=== PATIENT | female | born 1970 | race Caucasian/White ===

== ENCOUNTER → 2017-09-17 | Outpatient (CLI) | payer BC ==
[~2017-09-17] MED LIST: ADJUSTABLE COMM1 MIS; CHOL5000 PO; DICL75TA PO; GABA300C5 PO; HYDR-3580 PO; HYDR12.57 PO; KETO10 PO; MEDICAL MARIJUANA PO; PHEN37.52 PO; TRAM50TA PO; WALKER WHEELS/F1 MIS; XARE10TA PO
== END ==
LOC: CPRE 09:59
PROVIDERS: ATTEND Orthopaedic Surgery Orthopaedic Surgery of the Spine
DX: Z01.810 Encounter for preprocedural cardiovascular examination (principal); Z01.812 Encounter for preprocedural laboratory examination; M16.11 Unilateral primary osteoarthritis, right hip

== ENCOUNTER 2017-09-21 06:42 | Inpatient (IN) | payer BC ==
[~2017-09-21] VITALS: Ht 162.6 cm; Wt 110.0 kg
[~2017-09-21 06:42] MED LIST changes: -ADJUSTABLE COMM1 MIS; -HYDR-3580 PO; -KETO10 PO; -PHEN37.52 PO; -WALKER WHEELS/F1 MIS; -XARE10TA PO
[2017-09-21] MEDS ORDERED: ceFAZolin 2 GM PREMIX 50 ML IV SCH (07:15)
[2017-09-21] MEDS ORDERED: VANCOMYCIN 1000 MG/NS 250 ML (for <70 kg) IV SCH ×2 (07:15)
[2017-09-21] MEDS ORDERED: SODIUM CHLORID 0.9% 500 ML IV PRN (07:15)
[2017-09-21] MEDS ORDERED: CHLORHEXIDINE GLUCONATE 2 % 1 PACK (2 CLOTHS) TOPICAL PRN (07:15)
[2017-09-21] MEDS ORDERED: METOPROLOL TARTRATE 25 MG TAB PO PRN (07:15)
[2017-09-21] MEDS ORDERED: POVIDONE IODINE 5% (ANTISEPSIS KIT) 4 APPLICATIONS EACH NARE PRN (07:15)
[2017-09-21] MEDS ORDERED: POVIDONE IODINE 7.5% SCRUB 118 ML BOTTLE TOPICAL SCH (07:15)
[2017-09-21] MEDS ORDERED: LACTATED RINGER'S 1000 ML IV PRN (07:15)
[2017-09-21] MEDS ORDERED: ACETAMINOPHEN 1000 MG/100 ML 100 ML IV ONE (07:46)
[2017-09-21 08:08] LABS: BACTERIA, URINE RARE /hpf; BLOOD, URINE MOD (NEG); GLUCOSE,URINE NEG (NEG); KETONE, URINE NEG (NEG); MUCUS URINE FEW /lpf (OCC); NITRITE,URINE NEG (NEG); SQUAMOUS EPITHELIAL CELL URINE <1 /hpf (0-5); TRANSITIONAL EPI CELLS, URINE <1 /hpf; URINE COLOR YELLOW (YELLW/STRAW)
[2017-09-21 08:10] LABS: COMMENT (UR) CATH-CULTURE IND; CULTURE IF INDICATED CATH CULTURE IND
[2017-09-21] MEDS ORDERED: APREPITANT 40 MG CAP ONE (08:29)
[2017-09-21] MEDS ORDERED: FAMOTIDINE 20 MG/2 ML VIAL ONE (08:30)
[2017-09-21] MEDS ORDERED: GENTAMICIN SULFATE 80 MG/2 ML VIAL ONE (08:30)
[2017-09-21] MEDS ORDERED: ONDANSETRON HCL 4 MG/2 ML VIAL ONE (08:33)
[2017-09-21] MEDS ORDERED: ceFAZolin INJ 1,000 MG VIAL ONE (09:16)
[2017-09-21] MEDS ORDERED: TRANEXAMIC ACID IV SCH ×2 (10:00→12:20)
[2017-09-21] MEDS ORDERED: SODIUM CHLORIDE 0.9% IV SCH ×2 (10:00→12:20)
[2017-09-21] MEDS ORDERED: EXPAREL PERI-ARTICULAR INJECTION (TOTAL VOL. 60 ML) P-ARTICULR SCH ×2 (10:00)
--- NOTE | 2017-09-21 11:20 | PD.OP ---
cc: Amandeep Jc MD Operative Report Date of Surgery: Sep 21, 2017 Preoperative Diagnosis: Osteoarthritis right hip Postoperative Diagnosis: Same Procedure: Right total hip replacement arthroplasty, direct anterior exposure Anesthesia: Gen. Surgeon: Amandeep Jc Syrup Mixer Assistant(s): ABELARDO Pham Operation and Findings: EBL: 500 cc INDICATION: This patient presents with significant hip pain related to severe osteoarthritis of the right hip. Despite extensive conservative care this patient continues to be painful and now presents for surgical treatment. NOTE: Patricia Pham PA-C was present for the entire surgical procedure as my first beater. In my medical opinion her skill and care was necessary for the proper management of this patient. COMPONENTS: COMPANY: [employer] CUP: [place], before, 100 series, gription surface LINER: Altrx 32, neutral STEM: [place], size 9, high offset, hydroxyapatite-coated HEAD: 32, ceramic, plus 1, /14 taper PROCEDURE: This patient was brought to the operating room and anesthetized in the supine position and positioned on the fracture table with both legs held extended. The right hip and leg was scrubbed with alcohol followed by Hibiclens followed by ChloraPrep and draped sterilely. Antibiotics were given within routine time window and a timeout was done. A 4 inch incision was made starting 2 cm distal and 2 cm lateral to the anterior superior iliac spine. The fascia minor was opened longitudinally. The interval between the fascia minor and the rectus was opened down to the capsule of the hip joint. Retractors were positioned allowing good visualization of the capsule. This was opened longitudinally and flaps were created. Stay sutures were utilized. Exposure was excellent. The neck was cut at the proper location using fluoroscopy as a guide. The head was removed. Deep retractors were positioned allowing good visualization of the acetabulum. Acetabulum was deepened down to the floor starting with a proper size reamer and reaming up to 53 mm. A trial was utilized. Fluoroscopy was used to check position and confirmed satisfactory alignment. The rim was reamed with a 54 mm reamer and the final cup was positioned in approximately 20 of anteversion and 40-45 of abduction. Position was satisfactory. A single hole eliminator was positioned followed by the final liner. The lifting hook was utilized. The leg was dropped to the floor, maximally externally rotated and brought across the midline. Retractors were positioned. A box osteotome was utilized followed by progressive broaching to the proper stem size. Trial reduction showed excellent alignment and fit. With 60 of external rotation the leg was dropped to the floor without evidence of anterior subluxation. The wound was irrigated. The final stem was inserted and was found to be very stable. The final reduction using the final head. Stability was as previously noted. Intraoperative x-rays were taken. The wound was irrigated copiously. Hemostasis was controlled. Local anesthesia was utilized. The capsule was repaired with #2 Tycron sutures. The fascia minor was repaired with running 0 PDS on a loop. Subcutaneous tissue was approximated with 2-0 Vicryl and skin with running intradermal 3-0 Vicryl followed by Steri-Strips. A sterile dressing was applied. The patient was awakened and taken to the recovery room in satisfactory condition. FINDINGS: There was severe osteoarthritis of the right hip. Findings of the femoral head were suspicious for avascular necrosis. The overall fit was excellent. No complication was appreciated. Amandeep Jc MD Sep 21, 2017 11:20
[2017-09-21] MEDS ORDERED: XARE10TA PO (11:24)
[2017-09-21] MEDS ORDERED: HYDR-3580 PO (11:24)
[2017-09-21] MEDS ORDERED: MORPHINE SULFATE 8 MG/ML INJ IM PRN (11:30)
[2017-09-21] MEDS ORDERED: MISCELLANEOUS PHARMACY INFORMATION XX ONE (11:30)
[2017-09-21] MEDS ORDERED: MISCELLANEOUS NURSING INFORMATION XX PRN (11:30)
[2017-09-21] MEDS ORDERED: ACETAMINOPHEN/HYDROcodone 325 MG/7.5 MG TAB PO PRN (11:30)
[2017-09-21] MEDS ORDERED: MORPHINE SULFATE 30 MG/30 ML PCA IV SCH (11:30)
[2017-09-21] MEDS ORDERED: SODIUM CHLORIDE 0.9% FLUSH 5 ML FLUSH IVF PRN (11:30)
[2017-09-21] MEDS ORDERED: NALOXONE HCL 0.4 MG/ML AMP IV PUSH PRN (11:30)
[2017-09-21] MEDS ORDERED: Post-op Orders (for Pharmacy) MISC XX ONE (11:57)
[2017-09-21] MEDS ORDERED: LIDOCAINE HCL 1% PF 5 ML AMPULE OTHER ONE (12:00)
[2017-09-21] MEDS ORDERED: ONDANSETRON HCL 4 MG/2 ML VIAL IV PUSH ONE (12:00)
[2017-09-21] MEDS ORDERED: NEOSTIGMINE 3 MG/3 ML SYR IV ONE (12:00)
[2017-09-21] MEDS ORDERED: GLYCOPYRROLATE 1 MG/5 ML SYRINGE IV PUSH ONE (12:00)
[2017-09-21] MEDS ORDERED: LACTATED RINGER'S 1000 ML INJ 1,000 ML IV ONE (12:00)
[2017-09-21] MEDS ORDERED: DEXAMETHASONE SOD PHOS 4 MG/ML VIAL IV ONE (12:00)
[2017-09-21] MEDS ORDERED: PROPOFOL 200 MG/20 ML AMP IV ONE (12:00)
[2017-09-21] MEDS ORDERED: ROCURONIUM INJ 50 MG/5 ML SYRINGE IV PUSH ONE (12:00)
[2017-09-21] MEDS: LACTATED RINGER'S 1000 ML INJ 1,000 ML IV SCH ×2 (12:00→23:46)
[2017-09-21] MEDS ORDERED: MIDAZOLAM HCL 2 MG/2 ML VIAL IV ONE (12:00)
[2017-09-21] MEDS ORDERED: ePHEDrine/NS 25 MG/5 ML SYR IV ONE (12:00)
[2017-09-21] MEDS ORDERED: *morphine SULFATE 8 MG/ML PERIprocedure ONLY ONE ×2 (12:14→12:44)
[2017-09-21] MEDS ORDERED: DO NOT ADM ANY ANTICOAGULANT DRUGS PRN (13:00)
[2017-09-21] MEDS: PCA - TOTAL MG MORPHINE DELIVERED PER SHIFT SCH ×2 (14:00→22:00)
[2017-09-21 14:15] VITALS: BP 101/66; PULSE 102; RESP 18; TEMP 95.8; O2SAT 94
--- NOTE | 2017-09-21 14:29 | RADRPT ---
EXAM DATE/TIME: 09/21/2017 09:46 [facility] COMPARISON: No previous studies available for comparison. INDICATIONS : Right total hip replacement. MEDICAL HISTORY : Hypertension. SURGICAL HISTORY : None. ENCOUNTER: Initial ACUITY: 1 day PAIN SCORE: Non-responsive. LOCATION: Right Hip FINDINGS: 2 magnified C. arm spot views are centered over the hip and labeled right. A total hip prosthesis is seen and and in position. No gross fracture is observed. CONCLUSION: Right hip prosthesis in good position. Mateo Tracy Jr., MD on September 21, 2017 at 14:27 Board Certified Radiologist. This report was verified electronically.
[2017-09-21 18:16] VITALS: O2SAT 94
[2017-09-21 20:00] VITALS: BP 118/77; PULSE 119; RESP 20; TEMP 97.8; O2SAT 97
[2017-09-21] MEDS: SODIUM CHLORIDE 0.9% FLUSH 5 ML FLUSH IVF SCH (20:22)
[2017-09-21] MEDS: MAGNESIUM HYDROXIDE SUSP 30 ML CUP PO SCH (20:23)
[2017-09-21] MEDS: SENNOSIDES 8.6 MG TAB PO SCH (20:23)
[2017-09-21] MEDS: GABAPENTIN 300 MG CAP PO SCH (20:23)
[2017-09-21] MEDS: diphenhydrAMINE HCL 50 MG CAP PO PRN (20:23)
[2017-09-21] MEDS ORDERED: WALKER WHEELS/F1 MIS (21:13)
[2017-09-21] MEDS ORDERED: ADJUSTABLE COMM1 MIS (21:14)
--- NOTE | 2017-09-21 21:14 | HHI.DCPOC ---
Discharge Care Plan Diagnosis: (1) Osteoarthritis of right hip Your Health Problems Are: Difficulty with ADL Incision/Drains Inflammation Goals to Promote Your Health * To prevent worsening of your condition and complications * To maintain your health at the optimal level Directions to Meet Your Goals Take your medications as prescribed Follow your dietary instruction Follow activity as directed Keep your appointments as scheduled Take your immunizations and boosters as scheduled If your symptoms worsen call your PCP, if no PCP go to Urgent Care Center or Emergency Room Smoking is Dangerous to Your Health. Avoid second hand smoke Call the 24-hour hour crisis hotline for domestic abuse at Mikayla Leonardo Sep 21, 2017 21:14
--- NOTE | 2017-09-21 21:15 | HHI.FF ---
Face to Face Verification Diagnosis: (1) Osteoarthritis of right hip Physical Therapy Gait training, Safety evaluation, Transfer training, bed to chair Hip: Total hip, Protocol: Right, Progress to weight bearing Right LE Weight Bearing: WB as tolerated Additional Instructions PT 4 days/wk for 2 weeks. WBAT RLE, anterior JODEE precautions. Walker as needed. Improve gait, ROM and strength Nursing RN Days per Week: 2 x Week(s): 1 Dressing Changes: Do not change dressing Additional Instructions Vitals assessment. Dressing assessment - do not change unless saturated or erythema I have seen patient Freya Altamirano on 09/21/17. My clinical findings support the need for the requested home health care services because: Limited ability to care for self High risk of falls I certify that my clinical findings support that this patient is homebound because: Post-op weakness Unsteady gait/balance Mikayla Leonardo Sep 21, 2017 21:15
--- NOTE | 2017-09-21 21:23 | HHI.DS ---
Discharge Summary Admission Date Sep 21, 2017 at 06:42 Discharge Date: Sep 23, 2017 Admitting Diagnosis see below Diagnosis: (1) Osteoarthritis of right hip Diagnosis: Principal ICD Codes: M16.11 - Unilateral primary osteoarthritis, right hip Procedures RIght total hip arthroplasty, Direct anterior approach Brief History This is a 46 year old female patient with a history of bilateral hip pain for 2- 3 years. In 2016 she sought out treatment by an orthopaedic physician in [place]. She was told to lose weight followed by possible total hip replacement. She lost 60-70 pounds. She has bilateral hip injections with cortisone. She felt as though her right hip was worse and did not improve. She presented to Dr. Amandeep Jc for further care and was placed on diclofenac. Her function continued to decline and it was recommended she consider staged total hip arthroplasties, both direct anterior approach. The patient agreed and now presents for the above, specifically right total hip arthroplasty. Significant Findings Laboratory Tests Test 09/21/17 07:50 Urine Occult Blood MOD (NEG) Urine RBC 4 /hpf (0-3) Urine Bacteria RARE /hpf (NONE) Urine Mucus FEW /lpf (OCC) Hospital Course Surgical treatment was performed on the day of admission without complication. She recovered well in PACU and was transferred to the orthopaedic floor. Pain was controlled with IV and oral medications. DVT prophylaxis was initiated pod# 1 with Xarelto. She was compliant with physical therapy and all restrictions including JODEE protocols. After 2 days she was found to be stable and discharged home with home health care. She was instructed to continue her therapy, pursue a high fiber diet and to continue her xarelto for an additional 30 days. She was given a prescription of [place] for pain. Pt Condition on Discharge: Stable Discharge Disposition: Disch w/ Home Health Serv Discharge Instructions Diet Instructions: As Tolerated, No Restrictions, High Fiber Diet Activities You Can Perform: Weight Bearing as Cristina Activities to Avoid: Strenuous Activity Additional Activity Instruc.: Right JODEE, anterior approach protocol New Medications: Adjustable Commode 3-in-1 (Adjustable Commode 3-in-1) 1 Mis Mis EA .ROUTE DIRECTED, #1 Walker with Front Wheels (Walker with Front Wheels) 1 Mis Mis EA .ROUTE DIRECTED, #1 0 Refills Hydrocodone/Acetaminophen (Hydrocodone-Acetamin 7.5-325) 7.5 Mg-325 Mg Tablet 1 TAB PO Q4H PRN for pain, #50 TAB Rivaroxaban (Xarelto) 10 Mg Tab 10 MG PO Q24H for Prevent Blood Clot, #25 TAB Continued Medications: Cholecalciferol (Vitamin D3) 5,000 Unit Cap 5000 UNITS PO DAILY for Nutritional Supplement, #30 CAP 0 Refills Gabapentin (Gabapentin) 300 Mg Cap 300 MG PO HS, CAP 0 Refills Hydrochlorothiazide (Hydrochlorothiazide) 12.5 Mg Cap 12.5 MG PO DAILY, CAP 0 Refills Tramadol (Tramadol) 50 Mg Tab 50 MG PO HS PRN for PAIN, TAB 0 Refills [Medical Marijuana] () 50 MG 1 TAB PO DAILY Discontinued Medications: Diclofenac Sodium DR (Diclofenac Sodium DR) 75 Mg Tabdr 75 MG PO DAILY, #30 TAB 0 Refills Mikayla Leonardo Sep 21, 2017 21:23
[2017-09-22] VITALS: BP 124/92; PULSE 103; RESP 20; TEMP 97.7; O2SAT 98
[2017-09-22] MEDS: LACTATED RINGER'S 1000 ML INJ 1,000 ML IV SCH ×2 (02:14→12:16)
[2017-09-22 04:00] VITALS: BP 114/70; PULSE 76; RESP 20; TEMP 96.7; O2SAT 98
[2017-09-22] MEDS: PCA - TOTAL MG MORPHINE DELIVERED PER SHIFT SCH (06:00)
[2017-09-22 08:00] VITALS: BP 115/55; PULSE 64; RESP 17; TEMP 96.5; O2SAT 97
[2017-09-22] MEDS: SODIUM CHLORIDE 0.9% FLUSH 5 ML FLUSH IVF SCH ×2 (08:16→20:49)
[2017-09-22] MEDS: HYDROCHLOROTHIAZIDE 12.5 MG CAP PO SCH (08:16)
[2017-09-22] MEDS: MAGNESIUM HYDROXIDE SUSP 30 ML CUP PO SCH ×2 (08:16→20:48)
[2017-09-22 09:47] LABS: HEMATOCRIT 25.2 % (35.0-46.0)
[2017-09-22 09:57] LABS: REVIEW FLAG FINAL
[2017-09-22] MEDS: RIVAROXABAN 10 MG TAB PO SCH (11:16)
[2017-09-22] MEDS: diphenhydrAMINE HCL 50 MG CAP PO PRN ×2 (11:16→17:21)
[2017-09-22 12:00] VITALS: BP 113/65; PULSE 90; RESP 18; TEMP 97.3; O2SAT 98
--- NOTE | 2017-09-22 13:35 | PD.ORT.PN ---
Subjective Subjective Remarks She has moderate right hip pain. She was able to ambulate w PT earlier today but has sharp pains into the thigh. No new radiating leg pain. She denies any CP or SOB. She has a history of bilateral knee pain and restless leg syndrome. Objective Vitals Vital Signs Date Time Temp Pulse Resp B/P (MAP) Pulse Ox O2 Delivery O2 Flow Rate FiO2 09/22/17 12:11 21 09/22/17 12:11 21 09/22/17 12:00 97.3 90 18 113/65 (81) 98 09/22/17 08:00 96.5 64 17 115/55 (75) 97 09/22/17 04:00 96.7 76 20 114/70 (85) 98 09/22/17 00:00 97.7 103 20 124/92 (103) 98 09/21/17 20:00 97.8 119 20 118/77 (91) 97 09/21/17 18:16 94 21 09/21/17 14:15 95.8 102 18 101/66 (78) 94 09/21/17 14:00 16 09/21/17 13:45 97.7 90 20 117/58 (77) 99 Nasal Cannula 2 I/O 09/21/17 09/21/17 09/21/17 09/22/17 09/22/17 09/22/17 07:00 15:00 23:00 07:00 15:00 23:00 Intake Total 1800 ml 950 ml 1095 ml Output Total 850 ml 1200 ml 920 ml Balance 950 ml -250 ml 175 ml Intake Oral 850 ml 220 ml IV Total 100 ml 875 ml Other 1800 ml Output Urine Total 400 ml 1200 ml 920 ml Drainage Total 0 ml Estimated Blood Loss 450 ml # Bowel Movements 0 0 Result Diagram: 09/22/17 0920 Procedures RIght total hip arthroplasty, Direct anterior approach Objective Remarks Laying in bed Both parents present No Acute distress, anxious RLE Dressing c/d/i, no drainage, drain in place lateral, mild swelling, no erythema +motor at, +sens, +nvi Neg homans distal Assessment & Plan Ortho Post Op Day #: 1 Problem List: (1) Osteoarthritis of right hip ICD Codes: M16.11 - Unilateral primary osteoarthritis, right hip Qualifiers: Qualified Codes: M16.11 - Unilateral primary osteoarthritis, right hip Assessment and Plan pod#1 s/p R JODEE, anterior Ortho stable. D/C right hip drain. Ok to redress drain site but maintain incision dressing. PT - WBAT RLE. Anterior jodee precautions. Xarelto 10mg qd. 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 D/C planning, likely tomorrow home w [facility]. F2F written. Mikayla Leonardo Sep 22, 2017 13:35
[2017-09-22] MEDS: ACETAMINOPHEN/HYDROcodone 325 MG/7.5 MG TAB PO PRN ×3 (13:55→22:36)
[2017-09-22 16:00] VITALS: BP 118/67; PULSE 87; RESP 18; TEMP 96.9; O2SAT 96
[2017-09-22 19:32] VITALS: BP 104/51; PULSE 75; RESP 19; TEMP 97; O2SAT 97
[2017-09-22] MEDS: GABAPENTIN 300 MG CAP PO SCH (20:48)
[2017-09-22] MEDS: SENNOSIDES 8.6 MG TAB PO SCH (20:48)
[2017-09-23 00:24] VITALS: BP 109/56; PULSE 75; RESP 18; TEMP 97.5; O2SAT 95
[2017-09-23] MEDS: diphenhydrAMINE HCL 50 MG CAP PO PRN ×2 (00:26→09:03)
[2017-09-23] MEDS: LACTATED RINGER'S 1000 ML INJ 1,000 ML IV SCH (00:46)
[2017-09-23] MEDS: ACETAMINOPHEN/HYDROcodone 325 MG/7.5 MG TAB PO PRN ×3 (03:36→12:34)
[2017-09-23 08:00] VITALS: BP 110/59; PULSE 98; RESP 18; TEMP 96.7; O2SAT 97
--- NOTE | 2017-09-23 08:37 | PD.ORT.PN ---
Subjective Subjective Remarks She still has moderate right thigh pain but she feels she is 'doing better today '. She denies any new leg pain. She denies any CP or SOB. She has questions again about her knees, now on the left, but is ready for discharge today. Objective Vitals Vital Signs Date Time Temp Pulse Resp B/P (MAP) Pulse Ox O2 Delivery O2 Flow Rate FiO2 09/23/17 04:27 17 09/23/17 02:00 Room Air 09/23/17 00:24 97.5 75 18 109/56 (73) 95 09/22/17 20:15 21 09/22/17 19:32 97.0 75 19 104/51 (68) 97 09/22/17 16:00 96.9 87 18 118/67 (84) 96 09/22/17 12:11 21 09/22/17 12:11 21 09/22/17 12:00 97.3 90 18 113/65 (81) 98 I/O 09/22/17 09/22/17 09/22/17 09/23/17 09/23/17 09/23/17 07:00 15:00 23:00 07:00 15:00 23:00 Intake Total 1095 ml 2600 ml 480 ml 480 ml Output Total 920 ml Balance 175 ml 2600 ml 480 ml 480 ml Intake Oral 220 ml 2600 ml 480 ml 480 ml IV Total 875 ml Output Urine Total 920 ml Drainage Total 0 ml # Voids 10 6 4 # Bowel Movements 0 0 0 0 Result Diagram: 09/22/17 0920 Procedures RIght total hip arthroplasty, Direct anterior approach Objective Remarks Sitting up in bed No Acute distress, less anxious RLE Dressing c/d/i, no drainage, drain removed, site clean/dressed, mild swelling, no erythema +motor at, +sens, +nvi Neg homans distal Assessment & Plan Ortho Post Op Day #: 2 Problem List: (1) Osteoarthritis of right hip ICD Codes: M16.11 - Unilateral primary osteoarthritis, right hip Qualifiers: Qualified Codes: M16.11 - Unilateral primary osteoarthritis, right hip Assessment and Plan pod#2 s/p R JODEE, anterior Ortho stable. Ok to d/c home after PT today. Ok to redress drain site but maintain incision dressing. Do not shower for 5 days postop. Keep dressing sealed and dry. PT - WBAT RLE. Anterior jodee precautions. Xarelto 10mg qd. PO pain meds as needed. F/U in 2 weeks as scheduled. F2F written. Mikayla Leonardo Sep 23, 2017 08:37
[2017-09-23] MEDS: MAGNESIUM HYDROXIDE SUSP 30 ML CUP PO SCH (08:56)
[2017-09-23] MEDS: HYDROCHLOROTHIAZIDE 12.5 MG CAP PO SCH (08:57)
[2017-09-23] MEDS: SODIUM CHLORIDE 0.9% FLUSH 5 ML FLUSH IVF SCH (08:58)
[2017-09-23] MEDS: RIVAROXABAN 10 MG TAB PO SCH (09:00)
== END 2017-09-23 13:00 | disposition home or self-care (01) | DRG 470 ==
LOC: HSDI 06:42 → N06B 14:01
PROVIDERS: ADMIT Orthopaedic Surgery Orthopaedic Surgery of the Spine; ATTEND Orthopaedic Surgery Orthopaedic Surgery of the Spine
PROC: 0SR90JA Replacement of Right Hip Joint with Synthetic Substitute, Uncemented, Open Approach (ICD-10-PCS; principal; 2017-09-21 08:50)
DX: M16.11 Unilateral primary osteoarthritis, right hip (principal); G25.81 Restless legs syndrome
CPT/HCPCS: 73502; 76000; 81001; 85014; 85018; 86850; 86900; 86901; 86920; 87086; 94150; C1776; C9290; J0131; J0690; J1100; J1580; J2250; J2270; J2405; J2710; J3010; J3370; J7050; J7120; J8501; Q0163

== ENCOUNTER 2018-02-01 06:15 | Inpatient (IN) | payer BC ==
[~2018-02-01] VITALS: Ht 162.6 cm; Wt 118.0 kg
[~2018-02-01 06:15] MED LIST changes: +ADJUSTABLE COMM1 MIS; +AMIT8CAP6 PO; +CETI10TA71 PO; -CHOL5000 PO; +CYMB60CA PO; -DICL75TA PO; +HYDR-3580 PO; -MEDICAL MARIJUANA PO; +OMEP40CA2 PO; -TRAM50TA PO; +WALKER WHEELS/F1 MIS
[2018-02-01] MEDS ORDERED: CHLORHEXIDINE GLUCONATE 2 % 1 PACK (2 CLOTHS) TOPICAL PRN (07:00)
[2018-02-01] MEDS ORDERED: METOPROLOL TARTRATE 25 MG TAB PO PRN (07:00)
[2018-02-01] MEDS ORDERED: INSULIN HUMAN REGULAR 1,000 UNITS/10 ML VIAL SQ PRN (07:00)
[2018-02-01] MEDS ORDERED: SODIUM CHLORIDE 0.9% IV SCH (07:00)
[2018-02-01] MEDS ORDERED: SODIUM CHLORID 0.9% 500 ML IV PRN (07:00)
[2018-02-01] MEDS ORDERED: LACTATED RINGER'S 1000 ML IV PRN (07:00)
[2018-02-01] MEDS ORDERED: VANCOMYCIN 1 GM/200 ML INJ 200 ML IV SCH (07:00)
[2018-02-01] MEDS ORDERED: TRANEXAMIC ACID IV SCH (07:00)
[2018-02-01] MEDS ORDERED: CHLORHEXIDINE GLUCONATE 4% SOLN 120 ML BTL TOPICAL SCH (07:00)
[2018-02-01] MEDS ORDERED: POVIDONE IODINE 5% (ANTISEPSIS KIT) 4 APPLICATIONS EACH NARE PRN (07:00)
[2018-02-01] MEDS ORDERED: CEFAZOLIN INJ 2,000 MG in SODIUM CHLORIDE 0.9% INJ 100 ML IV SCH (07:00)
[2018-02-01] MEDS ORDERED: EXPAREL PERI-ARTICULAR INJECTION (TOTAL VOL. 60 ML) P-ARTICULR SCH ×2 (07:00)
[2018-02-01] MEDS ORDERED: MIDAZOLAM HCL 2 MG/2 ML VIAL ONE (07:09)
[2018-02-01] MEDS ORDERED: BUPIVACAINE LIPOSOME PF 1.3% 20 ML VIAL ONE (07:09)
[2018-02-01] MEDS ORDERED: ACETAMINOPHEN 1000 MG/100 ML 100 ML IV ONE (07:19)
[2018-02-01 07:34] VITALS: PULSE 77
[2018-02-01] MEDS ORDERED: BUPIVACAINE/EPINEPHRINE 0.25% 50 ML VIAL ONE (07:55)
[2018-02-01] MEDS ORDERED: BUPIVACAINE/EPINEPHRINE 0.25% PF 10 ML VIAL ONE ×2 (07:56→10:26)
[2018-02-01] MEDS ORDERED: GENTAMICIN SULFATE 80 MG/2 ML VIAL ONE (08:26)
[2018-02-01] MEDS ORDERED: ceFAZolin INJ 1,000 MG VIAL ONE (08:57)
[2018-02-01] MEDS ORDERED: NALOXONE HCL 0.4 MG/ML AMP IV PUSH PRN (11:30)
[2018-02-01] MEDS ORDERED: Post-op Orders (for Pharmacy) XX ONE (11:30)
[2018-02-01] MEDS ORDERED: oxyCODONE/ACETAMINOPHEN 5 MG/325 MG TAB PO PRN (11:30)
--- NOTE | 2018-02-01 11:36 | PD.OP ---
cc: Amandeep Jc MD Operative Report Date of Surgery: Feb 01, 2018 Preoperative Diagnosis: Osteoarthritis left knee Postoperative Diagnosis: Same Procedure: Left total knee replacement arthroplasty, cruciate retaining Anesthesia: Gen. Surgeon: Amandeep Jc Master Plumber(s): ABELARDO Pham Operation and Findings: EBL: 50 cc INDICATION: This patient presents with long-standing arthritis of the knee. Attachment record documents conservative measures. The patient now presents for surgical treatment. NOTE: Patricia Pham PA-C was present for the entire surgical procedure as my first assistant manager. In my medical opinion her skill and care was necessary for proper management of this patient. TOURNIQUET TIME: 71 minutes COMPANY: [employer] FEMUR: Size KR, size 4, cemented TIBIA: Size fixed bearing, size 4, cemented PATELLA: 29 mm POLYETHYLENE INSERT: KR size 4, 10 mm PROCEDURE: This patient was brought the operating room and anesthetized in the supine position. The patient was positioned supine on the table. The tourniquet was placed about the thigh, and the leg was scrubbed with alcohol followed by Hibiclens followed by ChloraPrep and draped sterilely. A timeout was done, and antibiotics were given. After exsanguination the tourniquet was inflated to 250 mmHg. An anterior incision was made and a median parapatellar arthrotomy was performed. The patella was released laterally and subluxed allowing freehand cut of the patella which was then sized. A metal cap was placed over the exposed patellar surface for protection. A airplane patrol pilot hole was placed in the distal femur allowing a 4 valgus cut removing 10 mm from the distal femur. Anterior posterior and chamfer cuts were made. The posterior stabilize osteotomy was made. The attention was directed to the tibia. Retractors were positioned. The external alignment guide was used allowing the lateral tibia to be used as referencing guide and cut utilizing an oscillating saw taking care to avoid any injury to the surrounding soft tissues. This was sized properly. Trial reduction showed that the insert fit nicely. The patient had range of motion extension 0 flexion 125. A medial release was not necessary. The bony surfaces prepared. On the back table 2 packets of methylmethacrylate were mixed. The components were cemented. Excess cement was removed. The tourniquet let down and hemostasis was controlled. The final plastic insert was inserted. Range of motion was the same as previously noted. The arthrotomy was repaired with interrupted #1 Vicryl suture, subcutaneous tissue 2-0 Vicryl suture and skin with metallic alli A sterile dressing was applied. Sponge counts, needle counts and instrument counts were all correct. The patient tolerated procedure well and was taken to recovery in satisfactory condition. FINDINGS: There was severe osteoarthritis. The overall balancing was excellent. No complication that was appreciated. Amandeep Jc MD Feb 01, 2018 11:36
[2018-02-01] MEDS ORDERED: ECASA81 PO (11:40)
[2018-02-01] MEDS ORDERED: OXYC1TAB63 PO (11:40)
[2018-02-01] MEDS ORDERED: DO NOT ADM ANY ANTICOAGULANT DRUGS PRN (11:44)
[2018-02-01] MEDS ORDERED: MORPHINE SULFATE 4 MG/ML INJ ONE (11:56)
[2018-02-01] MEDS ORDERED: PROPOFOL 200 MG/20 ML AMP IV ONE (12:00)
[2018-02-01] MEDS ORDERED: ASPIRIN EC 81 MG TABEC PO ONE (12:00)
[2018-02-01] MEDS ORDERED: NEOSTIGMINE 5 MG/5 ML SYRINGE IV PUSH ONE (12:00)
[2018-02-01] MEDS ORDERED: DEXAMETHASONE SOD PHOS 4 MG/ML VIAL IV ONE (12:00)
[2018-02-01] MEDS ORDERED: GLYCOPYRROLATE 1 MG/5 ML SYRINGE IV PUSH ONE (12:00)
[2018-02-01] MEDS ORDERED: LIDOCAINE HCL 1% PF 5 ML SYRINGE OTHER ONE (12:00)
[2018-02-01] MEDS ORDERED: LABETALOL HCL 100 MG/20 ML VIAL IV ONE (12:00)
[2018-02-01] MEDS ORDERED: ONDANSETRON HCL 4 MG/2 ML VIAL IV ONE (12:00)
[2018-02-01] MEDS ORDERED: ROCURONIUM INJ 50 MG/5 ML SYRINGE IV PUSH ONE (12:00)
[2018-02-01] MEDS ORDERED: *morphine SULFATE 8 MG/ML PERIprocedure ONLY ONE (12:30)
[2018-02-01] MEDS: LACTATED RINGER'S 1000 ML INJ 1,000 ML IV SCH (12:30)
[2018-02-01] MEDS ORDERED: CPMMACHINE (13:09)
--- NOTE | 2018-02-01 13:15 | RADRPT ---
EXAM DATE/TIME: 02/01/2018 12:09 [facility] COMPARISON: No previous studies available for comparison. INDICATIONS : Post left knee replacement MEDICAL HISTORY : Hypertension. SURGICAL HISTORY : hip replaced, knee replaced ENCOUNTER: Initial ACUITY: 1 day PAIN SCORE: Non-responsive. LOCATION: Left knee FINDINGS: 2 views of the knee show a total knee prosthesis in good position. No fracture or dislocation is obse rved. Soft tissue swelling is noted. CONCLUSION: Total knee prosthesis in good position. Mateo Tracy Jr., MD on February 01, 2018 at 13:12 Board Certified Radiologist. This report was verified electronically.
[2018-02-01] MEDS ORDERED: *morphine SULFATE 4 MG/ML PERIprocedure ONLY ONE (14:07)
[2018-02-01] MEDS: oxyCODONE/ACETAMINOPHEN 5 MG/325 MG TAB PO PRN ×2 (15:54→20:06)
[2018-02-01 16:00] VITALS: BP 144/78; PULSE 97; RESP 18; TEMP 98.4; O2SAT 94
[2018-02-01] MEDS: ASPIRIN EC 81 MG TABEC PO SCH (20:05)
[2018-02-01] MEDS: GABAPENTIN 300 MG CAP PO SCH (20:06)
[2018-02-01] MEDS: diphenhydrAMINE HCL 25 MG CAP PO PRN (20:06)
[2018-02-01] MEDS ORDERED: TEMAZEPAM 15 MG CAP PO PRN (21:00)
[2018-02-01 22:15] VITALS: BP 140/65; PULSE 101; RESP 18; TEMP 98; O2SAT 94
[2018-02-02] VITALS (7 sets, daily range): BP systolic 105–140; BP diastolic 57–77; PULSE 78–96; RESP 17–19; TEMP 97–98.4; O2SAT 92–98
[2018-02-02] MEDS: oxyCODONE/ACETAMINOPHEN 5 MG/325 MG TAB PO PRN ×5 (00:29→16:58)
[2018-02-02] MEDS: LACTATED RINGER'S 1000 ML INJ 1,000 ML IV SCH ×2 (04:00→12:31)
[2018-02-02 07:25] LABS: HEMATOCRIT 33.9 % (35.0-46.0); HEMOGLOBIN 11.3 GM/DL (11.6-15.3)
[2018-02-02] MEDS: ASPIRIN EC 81 MG TABEC PO SCH ×2 (08:38→20:06)
[2018-02-02] MEDS: CETIRIZINE HCL 10 MG TAB PO SCH (08:39)
[2018-02-02] MEDS: DULoxetine HCl DR 60 MG CAP PO SCH (08:39)
[2018-02-02] MEDS: PANTOPRAZOLE SOD 40 MG DELAYED RELEASE TAB PO SCH (08:39)
[2018-02-02] MEDS: HYDROCHLOROTHIAZIDE 12.5 MG CAP PO SCH (08:39)
[2018-02-02] MEDS ORDERED: AMITIZA 8 MCG PO SCH (09:00)
--- NOTE | 2018-02-02 09:29 | HHI.DCPOC ---
Discharge Care Plan Diagnosis: (1) Osteoarthritis of left knee Your Health Problems Are: Difficulty with ADL Incision/Drains Swelling Goals to Promote Your Health * To prevent worsening of your condition and complications * To maintain your health at the optimal level Directions to Meet Your Goals Take your medications as prescribed Follow your dietary instruction Follow activity as directed Keep your appointments as scheduled Take your immunizations and boosters as scheduled If your symptoms worsen call your PCP, if no PCP go to Urgent Care Center or Emergency Room Smoking is Dangerous to Your Health. Avoid second hand smoke Call the 24-hour hour crisis hotline for domestic abuse at Mikayla Leonardo Feb 02, 2018 09:29
--- NOTE | 2018-02-02 09:30 | HHI.DS ---
Discharge Summary Admission Date Feb 01, 2018 at 06:15 Discharge Date: Feb 04, 2018 Admitting Diagnosis see below Diagnosis: (1) Osteoarthritis of left knee Diagnosis: Principal ICD Codes: M17.12 - Unilateral primary osteoarthritis, left knee Procedures Left total knee arthroplasty Brief History This is a 47 year old female patient CBC/BMP: 02/02/18 0620 Significant Findings Laboratory Tests Test 02/02/18 06:20 Hemoglobin 11.3 GM/DL (11.6-15.3) Hematocrit 33.9 % (35.0-46.0) Hospital Course was ready for d/c pod#1 but insurance did not auth home care so patient was kept an additional 2 days solely for purpose of waiting on insurance. pod#3 HHC , [id number], Percocet 5mg Pt Condition on Discharge: Stable Discharge Disposition: Disch w/ Home Health Serv Discharge Instructions Diet Instructions: As Tolerated, No Restrictions, High Fiber Diet Activities You Can Perform: Weight Bearing as Cristina Activities to Avoid: Strenuous Activity Additional Activity Instruc.: TKA protocol New Medications: CPM-Continuous Passive Motion Machine (CPM-Continuous Passive Motion Machine) 1 Ea Device EA .XX DIRECTED, #[address] (Aspirin DR) 81 Mg Tabdr 81 MG PO BID for Prevent Blood Clot, #60 TAB Oxycodone HCl/Acetaminophen (Oxycodone-Acetaminophen 5-325) 5 Mg-325 Mg Tablet 1 TAB PO Q4H PRN for PAIN, #42 TAB Continued Medications: Cetirizine (All Day Allergy) 10 Mg Tab 10 MG PO DAILY for Allergies, TAB [address] (Cymbalta ) 60 Mg Capdr 60 MG PO DAILY, #30 CAP 0 Refills Gabapentin (Gabapentin) 300 Mg Cap 300 MG PO HS, CAP 0 Refills Hydrochlorothiazide (Hydrochlorothiazide) 12.5 Mg Cap 12.5 MG PO DAILY, CAP 0 Refills Hydrocodone/Acetaminophen (Hydrocodone-Acetamin 7.5-325) 7.5 Mg-325 Mg Tablet 1 TAB PO Q4H PRN for pain, #50 TAB Lubiprostone (Amitiza) 8 Mcg Cap 8 MG PO DAILY for Constipation, CAP 0 Refills Omeprazole (Omeprazole) 40 Mg Cap 40 MG PO DAILY, #30 CAP 0 Refills Mikayla Leonardo Feb 02, 2018 09:30
[2018-02-02] MEDS: diphenhydrAMINE HCL 25 MG CAP PO PRN ×2 (10:14→16:57)
--- NOTE | 2018-02-02 13:02 | HHI.FF ---
Face to Face Verification Diagnosis: (1) Osteoarthritis of left knee Physical Therapy Gait training, Safety evaluation, Transfer training, bed to chair Knee: Total knee, Protocol: Left, Full weight bearing Canvas Knee Splint: When in bed & 2 pillows btw thighs Left LE Weight Bearing: WB as tolerated Additional Instructions PT 3-4 days/wk for 2 weeks. WBAT Left LE. TKA protocol. CPM bid as tolerated , 0-60 with goal 100 flexion. CKS when in bed for 3-4 weeks. Nursing RN Days per Week: 2 x Week(s): 1 RN: 3 days/week x 2 weeks Dressing Changes: Do not change dressing Additional Instructions RN 2x/week for 1 weeks. Vitals assessment. Dressing assessment - do not change unless saturated. I have seen patient Freya Altamirano on 02/02/18. My clinical findings support the need for the requested home health care services because: Limited ability to care for self High risk of falls I certify that my clinical findings support that this patient is homebound because: Post-op weakness Unsteady gait/balance Mikayla Leonardo Feb 02, 2018 13:02
--- NOTE | 2018-02-02 14:24 | PD.ORT.PN ---
Subjective Subjective Remarks Moderate left knee pain. No new leg pain. She feels as though her dressing is 'a little tight' but has no complaints otherwise. No new CP or SOB. Objective Vitals Vital Signs Date Time Temp Pulse Resp B/P (MAP) Pulse Ox O2 Delivery O2 Flow Rate FiO2 02/02/18 12:33 98.0 96 18 123/74 (90) 98 02/02/18 08:00 97.7 78 17 140/77 (98) 96 02/02/18 05:00 97.0 91 17 105/57 (73) 93 02/02/18 00:22 97.1 96 18 117/77 (90) 96 02/01/18 22:15 98.0 101 18 140/65 (90) 94 02/01/18 16:00 98.4 97 18 144/78 (100) 94 02/01/18 15:10 98.5 100 18 143/80 (101) 94 Nasal Cannula 3 I/O 02/01/18 02/01/18 02/01/18 02/02/18 02/02/18 02/02/18 07:00 15:00 23:00 07:00 15:00 23:00 Intake Total 1500 ml 720 ml Output Total 350 ml Balance 1150 ml 720 ml Intake Oral 720 ml Other 1500 ml Output Urine Total 300 ml Estimated Blood Loss 50 ml # Voids 1 2 # Bowel Movements 0 Result Diagram: 02/02/18 0620 Procedures Left total knee arthroplasty Objective Remarks Sitting in chair, at bedside NAD Left LE Knee dressing c/d/i, no external drainage, mild swelling, +motor at distal, +sens, +nvi Neg homans Assessment & Plan Ortho Post Op Day #: 1 Problem List: (1) Osteoarthritis of left knee ICD Codes: M17.12 - Unilateral primary osteoarthritis, left knee Qualifiers: Qualified Codes: M17.12 - Unilateral primary osteoarthritis, left knee Assessment and Plan pod#1 s/p L TKA Ortho stable. Moderate pain. Ok to d/c home w hhc after PT today. Percocet 5mg ASA 81mg bid. Hold dressing changes unless saturated. PT - WBAT LLE. TKA protocol. CPM bid as tolerated. CKS in bed for 3-4 weeks. Follow up in 2 weeks as scheduled. F2F signed. Mikayla Leonardo Feb 02, 2018 14:24
[2018-02-02] MEDS: GABAPENTIN 300 MG CAP PO SCH (20:06)
[2018-02-02] MEDS: MORPHINE SULFATE 8 MG/ML INJ IM PRN (20:07)
[2018-02-03] MEDS: LACTATED RINGER'S 1000 ML INJ 1,000 ML IV SCH ×3 (01:30→20:49)
[2018-02-03] MEDS: oxyCODONE/ACETAMINOPHEN 5 MG/325 MG TAB PO PRN ×5 (02:50→21:11)
[2018-02-03 08:00] VITALS: BP 123/60; PULSE 105; RESP 18; TEMP 98.2; O2SAT 97
[2018-02-03] MEDS: DULoxetine HCl DR 60 MG CAP PO SCH (09:02)
[2018-02-03] MEDS: PANTOPRAZOLE SOD 40 MG DELAYED RELEASE TAB PO SCH (09:02)
[2018-02-03] MEDS: HYDROCHLOROTHIAZIDE 12.5 MG CAP PO SCH (09:02)
[2018-02-03] MEDS: CETIRIZINE HCL 10 MG TAB PO SCH (09:02)
[2018-02-03] MEDS: ASPIRIN EC 81 MG TABEC PO SCH ×2 (09:02→19:56)
[2018-02-03] MEDS: diphenhydrAMINE HCL 25 MG CAP PO PRN ×2 (10:11→17:33)
[2018-02-03 11:45] VITALS: BP 120/70; PULSE 96; RESP 21; TEMP 98.2; O2SAT 97
[2018-02-03] MEDS: MORPHINE SULFATE 8 MG/ML INJ IM PRN ×2 (15:14→19:57)
[2018-02-03 16:00] VITALS: BP 112/61; PULSE 97; RESP 18; TEMP 97.8; O2SAT 93
[2018-02-03 18:30] VITALS: BP 102/59; PULSE 99; RESP 15; TEMP 97.5; O2SAT 95
[2018-02-03] MEDS: GABAPENTIN 300 MG CAP PO SCH (19:55)
[2018-02-04] VITALS: BP 123/78; PULSE 100; RESP 20; TEMP 98.2; O2SAT 94
[2018-02-04] MEDS: diphenhydrAMINE HCL 25 MG CAP PO PRN ×2 (02:08→08:29)
[2018-02-04] MEDS: oxyCODONE/ACETAMINOPHEN 5 MG/325 MG TAB PO PRN ×3 (02:09→10:20)
--- NOTE | 2018-02-04 07:59 | PD.ORT.PN ---
Subjective Subjective Remarks Doing well. Waiting for discharge. Discharge is being delayed because of insurance companies authorization of home healthcare. No complaints Objective Vitals Vital Signs Date Time Temp Pulse Resp B/P (MAP) Pulse Ox O2 Delivery O2 Flow Rate FiO2 02/04/18 00:00 98.2 100 20 123/78 (93) 94 02/03/18 18:30 97.5 99 15 102/59 (73) 95 02/03/18 16:00 97.8 97 18 112/61 (78) 93 02/03/18 11:45 98.2 96 21 120/70 (87) 97 02/03/18 08:00 98.2 105 18 123/60 (81) 97 I/O 02/03/18 02/03/18 02/03/18 02/04/18 02/04/18 02/04/18 07:00 15:00 23:00 07:00 15:00 23:00 Intake Total 480 ml 480 ml 220 ml Balance 480 ml 480 ml 220 ml Intake Oral 480 ml 480 ml 220 ml # Voids 5 3 4 # Bowel Movements 0 0 0 Result Diagram: 02/02/18 0620 Procedures Left total knee arthroplasty Objective Remarks In bed with CPM NAD Left LE Knee dressing c/d/i, no external drainage, mild swelling, +motor at distal, +sens, +nvi, mild ecchymosis Neg homans Assessment & Plan Problem List: (1) Osteoarthritis of left knee ICD Codes: M17.12 - Unilateral primary osteoarthritis, left knee Qualifiers: Qualified Codes: M17.12 - Unilateral primary osteoarthritis, left knee Assessment and Plan Osteoarthritis left knee. Surgery: Left TKA: POD #3 PLAN: Ortho stable. Ok to d/c home w hhc after PT today. Percocet 5mg ASA 81mg bid. Hold dressing changes unless saturated. PT - WBAT LLE. TKA protocol. CPM bid as tolerated. CKS in bed for 3-4 weeks. Follow up in 2 weeks as scheduled. F2F signed. Amandeep Jc MD Feb 04, 2018 07:59
[2018-02-04 08:00] VITALS: BP 109/58; PULSE 87; RESP 15; TEMP 97.7; O2SAT 93
[2018-02-04] MEDS: PANTOPRAZOLE SOD 40 MG DELAYED RELEASE TAB PO SCH (08:29)
[2018-02-04] MEDS: CETIRIZINE HCL 10 MG TAB PO SCH (08:29)
[2018-02-04] MEDS: ASPIRIN EC 81 MG TABEC PO SCH (08:29)
[2018-02-04] MEDS: DULoxetine HCl DR 60 MG CAP PO SCH (08:29)
[2018-02-04] MEDS: HYDROCHLOROTHIAZIDE 12.5 MG CAP PO SCH (08:29)
[2018-02-04] MEDS: LACTATED RINGER'S 1000 ML INJ 1,000 ML IV SCH (08:30)
== END 2018-02-04 12:36 | disposition home health service (06) | DRG 470 ==
LOC: HSDI 06:15 → N06B 15:34
PROVIDERS: ADMIT Orthopaedic Surgery Orthopaedic Surgery of the Spine; ATTEND Orthopaedic Surgery Orthopaedic Surgery of the Spine
PROC: 0SRD0J9 Replacement of Left Knee Joint with Synthetic Substitute, Cemented, Open Approach (ICD-10-PCS; principal; 2018-02-01 08:46)
DX: M17.12 Unilateral primary osteoarthritis, left knee (principal); Z68.41 Body mass index [BMI] 40.0-44.9, adult; K21.9 Gastro-esophageal reflux disease without esophagitis; E66.9 Obesity, unspecified; M79.7 Fibromyalgia; Z96.641 Presence of right artificial hip joint
CPT/HCPCS: 73560; 85014; 85018; 86850; 86900; 86901; 86920; 88304; 94150; C1776; C9290; J0131; J0690; J1100; J1580; J2250; J2270; J2405; J2710; J3010; J3370; J7120; L1830

== ENCOUNTER 2018-08-30 07:00 | Inpatient (IN) ==
[2018-08-30] MEDS ORDERED: Sodium Chlor 0.9% Inj 500 ML IV.CONT ONE (08:00)
[2018-08-30] MEDS ORDERED: Metoprolol Tartrate 25 MG Tablet PO ONE (08:00)
[2018-08-30] MEDS ORDERED: Chlorhexidine Gluconate 2% 1 Pack (2 Cloths) TOPICAL ONE (08:00)
[2018-08-30] MEDS ORDERED: Sodium Chlor 0.9% Inj 40 ML, Bupivacaine Liposo PF 1.3% Inj 20 ML P-ARTICULR SCH ×2 (08:15)
[2018-08-30] MEDS ORDERED: Vancomycin Inj 1,000 MG in Sodium Chlor 0.9% Inj 250 ML IV.SIG SCH (08:15)
[2018-08-30] MEDS ORDERED: ceFAZolin 2 GM IV; once IV.SIG SCH (08:15)
[2018-08-30] MEDS ORDERED: Chlorhexidine 4% Topical 120 APPLIC/120 ML Bottle TOPICAL SCH (08:15)
[2018-08-30] MEDS ORDERED: SODIUM CHLOR 0.9% IV.SIG SCH (09:00)
[2018-08-30] MEDS ORDERED: TRANEXAMIC ACID IV.SIG SCH (09:00)
== END 2018-08-30 08:05 | disposition home or self-care (01) ==
LOC: HSDI 07:00
PROVIDERS: ADMIT Orthopaedic Surgery Orthopaedic Surgery of the Spine; ATTEND Orthopaedic Surgery Orthopaedic Surgery of the Spine

== ENCOUNTER 2018-09-08 09:15 | Inpatient (IN) ==
[2018-09-08] MEDS ORDERED: Vancomycin Inj 1,000 MG in Sodium Chlor 0.9% Inj 250 ML IV.SIG SCH (10:00)
[2018-09-08] MEDS ORDERED: Sodium Chlor 0.9% Inj 40 ML, Bupivacaine Liposo PF 1.3% Inj 20 ML P-ARTICULR SCH ×2 (10:00)
[2018-09-08] MEDS ORDERED: Sodium Chlor 0.9% Inj 500 ML IV.CONT ONE (10:00)
[2018-09-08] MEDS ORDERED: ceFAZolin 2 GM Premix Inj 2 GM/50 ML PIGGYBACK IV.SIG SCH (10:00)
[2018-09-08] MEDS ORDERED: Chlorhexidine 4% Topical 120 APPLIC/120 ML Bottle TOPICAL SCH (10:00)
[2018-09-08] MEDS ORDERED: Chlorhexidine Gluconate 2% 1 Pack (2 Cloths) TOPICAL ONE (10:00)
[2018-09-08] MEDS ORDERED: Metoprolol Tartrate 25 MG Tablet PO ONE (10:00)
[2018-09-08] MEDS ORDERED: SODIUM CHLOR 0.9% IV.SIG SCH (10:00)
[2018-09-08] MEDS ORDERED: TRANEXAMIC ACID IV.SIG SCH (10:00)
[2018-09-08] MEDS ORDERED: Bupivacaine/Epinephrine Inj 0.25% 50 ML Vial ONE (12:47)
[2018-09-08] MEDS ORDERED: Post-op Orders (for Pharmacy) OTHER STA (15:49)
[2018-09-08] MEDS ORDERED: Bisacodyl 10 MG Supp RECTAL PRN (15:49)
--- NOTE | 2018-09-08 15:54 | P.OP ---
- Preoperative Diagnosis (1) Osteoarthritis of left hip - Postoperative Diagnosis (1) Osteoarthritis of left hip Date of procedure: 09/08/18 Procedure: Left total hip arthroplasty, direct anterior exposure Anesthesia: GETA Surgeon: Amandeep Jc MD Chief Talent Officer: ABELARDO Pham Operation and Findings: EBL: 450 cc INDICATION: This patient is a 47-year-old female with multi-joint degenerative arthritis. She has had a previous knee replacement and previous right hip replacement. She has severe arthritis of the left hip. She now presents for surgical treatment. NOTE: Patricia Pham PA-C was present for the entire surgical procedure as my assistant film editor. In my medical opinion her skill and care was necessary for the proper management of this patient. COMPONENTS: COMPANY: [employer] CUP: [place], 54 mm, 100 series STEM: [place], size 9, high offset HEAD: Ceramic, 32 mm, +1, 10/21 taper LINER: 32, neutral PROCEDURE: This patient was brought to the operating room and anesthetized in the supine position. The patient was positioned on the [place] table with the operative leg extended and the contralateral leg held position. The hip and leg was scrubbed with alcohol followed by Hibiclens followed by ChloraPrep and draped sterilely in the clean air suite. Preoperative fluoroscopic images were utilized. A templating x-ray was obtained and printed to be used during the case. A timeout was done and antibiotics were given within a routine time window. A 4 inch incision was made starting 2 cm distal and 2 cm lateral to the anterior superior iliac spine. The tensor fascia minor fascia was identified and opened longitudinally in line with the incision. Deep retraction allowed good visualization in the interval between the tensor fascia minor and the rectus and this was opened further. The posterior fascia was opened. Crossing vessels were coagulated appropriately. The anterior aspect of the hip capsule was identified. Retractors were placed above and below the capsule. The capsule was opened longitudinally. Stay sutures were utilized creating flaps for the anterior capsule. The femoral neck was cut at the right location and completed with an oscillating saw. The head and neck was removed and taken to the back table. The leg was externally rotated 60 degrees and traction placed on the extremity. The labrum was excised. A portion of the capsule was excised. Visibility was excellent. Retractors were positioned. Starting 6 mm from the final size reamer, we began reaming up to 1 mm from the anticipated size. This was visualized under fluoroscopy. A trial cup was positioned. This also was visualized under fluoroscopy and minor adjustments were made. The final preparation with a 54 reamer was utilized. The final cup was positioned in approximately 40 degrees of abduction and 20 degrees of forward flexion. This is visualized under fluoroscopy and was seated into the final position. Position was very satisfactory. A single hole eliminator was positioned followed by the plastic liner. The final solution was excellent. Traction was let off. The leg was brought into neutral rotation. A lifting took was positioned underneath the greater trochanter and proximal femur. The leg was maximally X rotated and the foot drop to the floor across midline. Retractors were positioned. A box osteotome was used to gain entrance into the top of the femur. The canal was probed with a finder to ensure that we are within the canal. Successive broaching up to the final stem size was accomplished. We could see a small stress crack developing in the region of the calcar. A [employer] super cable was positioned around the calcar and tightened according to financial aid coordinator's recommendation. This appeared to be very stable. Trial reduction showed excellent balancing. Adjustments were made. The wound was irrigated copiously and the canal irrigated. The final stem was inserted in proper orientation. Trial again was trialed and the final head side was impacted. The hip was reduced and with 60 degrees of external rotation the leg to be dropped to the floor without evidence of anterior subluxation. Intraoperative x-rays were obtained. Local anesthesia was utilized for a field block including posterior capsule, inferior capsule, cephalad capsule, region of the greater trochanter, tensor fascia minor and subcutaneous tissue. The anterior capsule was repaired with interrupted #2 Tycron sutures. The fascia was run with 0 PDS on a loop. Subcutaneous tissue was approximated 2-0 Vicryl suture and skin with running intradermal 3-0 Vicryl followed by benzoin and Steri-Strips. A sterile dressing was applied. 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 The final solution appeared to be excellent. There was a small stress fracture seen in the region of the calcar which was repaired with a cerclage cable and tightened appropriately. The final stem appeared to be very stable and secure.
--- NOTE | 2018-09-08 15:55 | P.DCO ---
- Physical Therapy Physical Therapy: Gait training Hip: Total hip, Protocol: Left Left Lower Extremity Weight Bearing: Toe touch weight bearing (PT 5 days/week for 2 weeks) - Nursing Nursing: Dressing changes Dressing changes: Do not change dressing (Unless saturated. If saturated, dry dressing daily) - Certification Need for Home Health services: I have seen patient Freya Altamirano on 09/08/18. My clinical findings support the need for the requested home health care services because: Need for Home Health Services: Limited ability to care for self Homebound Certification: I certify that my clinical findings support that this patient is homebound because: Homebound Certification: Unsteady gait/balance
--- NOTE | 2018-09-08 16:25 | XR ---
EXAM DATE: 09/08/2018 4:22 PM EDT AGE/SEX: 47 years / Female INDICATIONS: Placement of total left hip in or. CLINICAL DATA: This is the patient's initial encounter. Patient reports that signs and symptoms have been present for 1 day and indicates a pain score of Nonresponsive. MEDICAL/SURGICAL HISTORY: None. None. COMPARISON: No prior exams available for comparison. FINDINGS: The patient has a left total hip arthroplasty in good position. There is no evidence of fracture. CONCLUSION: Left total hip arthroplasty in good position. Electronically signed by: Feroz Jameson MD 09/08/2018 4:24 PM EDT
[2018-09-08] MEDS ORDERED: fentaNYL Citrate Inj 100 MCG/2 ML Ampul ONE (16:48)
[2018-09-08] MEDS ORDERED: *morphine SULFATE 4 MG/ML PERIprocedure ONLY ONE ×3 (17:00→17:20)
[2018-09-08] MEDS: Morphine Inj 4 MG/ML Vial IV.PUSH PRN ×2 (19:59→22:21)
[2018-09-08] MEDS: Pregabalin 75 MG Capsule PO SCH (20:05)
[2018-09-08] MEDS: Senna/Docusate Sodium 8.6/50 MG Tablet PO SCH (20:06)
[2018-09-08] MEDS: Multivitamin/Minerals Therapeutic Tablet PO SCH (20:07)
[2018-09-08] MEDS ORDERED: Temazepam 15 MG Capsule PO PRN (21:00)
[2018-09-08] MEDS: ceFAZolin 1 GM Premix Inj 1 GM/50 ML FROZ.PIGGY IV.SIG SCH (23:14)
[2018-09-09] MEDS: ceFAZolin 1 GM Premix Inj 1 GM/50 ML FROZ.PIGGY IV.SIG SCH ×2 (02:24→08:15)
[2018-09-09] MEDS: Morphine Inj 4 MG/ML Vial IV.PUSH PRN ×6 (03:40→21:36)
[2018-09-09 05:39] LABS: Hematocrit 33.9 % (35.0-46.0); Hemoglobin 11.5 gm/dL (11.6-15.3)
--- NOTE | 2018-09-09 07:45 | P.PNOP ---
Subjective Interval history: Doing 'ok'. Moderate left hip pain, poorly controlled yesterday. Left leg feels tired. No other concerns. Questions about discharge, prefers tomorrow. Physical Exam Vital signs: Vital Signs 09/08/18 10:00 09/08/18 16:36 09/08/18 16:45 Temperature 98.8 F 97.8 F Pulse Rate 70 80 76 Respiratory Rate 20 15 17 Blood Pressure 144/85 H 138/95 H 162/79 H Pulse Oximetry 95 95 95 09/08/18 17:00 09/08/18 17:15 09/08/18 17:45 Temperature 97.7 F Pulse Rate 76 80 78 Respiratory Rate 15 17 18 Blood Pressure 164/77 H 157/75 H 164/84 H Pulse Oximetry 96 95 95 09/08/18 18:15 09/08/18 19:03 09/08/18 20:00 Temperature 97.4 F L 97.1 F L Pulse Rate 80 90 Respiratory Rate 12 18 18 Blood Pressure 162/88 H 152/74 H Pulse Oximetry 96 94 L 09/08/18 20:24 09/08/18 22:23 09/09/18 00:00 Temperature 98.3 F Pulse Rate 93 H Respiratory Rate 18 18 18 Blood Pressure 115/68 Pulse Oximetry 94 L 09/09/18 00:18 09/09/18 03:42 09/09/18 04:00 Temperature 98.2 F Pulse Rate 79 Respiratory Rate 18 18 18 Blood Pressure 131/73 Pulse Oximetry 95 Intake & Output 09/08/18 09/09/18 09/09/18 18:59 06:59 18:59 Intake Total 2112.08 / 2112.08 1310 / 1310 Output Total 450 / 450 Balance 1662.08 / 1662.08 1310 / 1310 Weight 120.8 kg 125.8 kg Intake: IV 1412.08 / 1412.08 950 / 950 LR 1000 mL Inj 1,000 ML @ 80 1000 / 1000 850 / 850 mls/hr IV.CONT .[id number] [facility] Rx# :[id number] Cyklokapron Inj 1,208 MG In NS 112.08 / 112.08 Inj 100 ML @ 200 mls/hr IV.SIG ONCE [facility] Rx#:[id number] Vancomycin Inj 1,000 MG In NS 250 / 250 Inj 250 ML @ 250 mls/hr IV.SIG DIRECTOR [employer]UNICATIONS [facility] Rx#:[id number] Ancef 1 GM Premix Inj 1 gm In 100 / 100 50 ml @ 100 mls/hr IV.SIG Q6H [facility] Rx#:[id number] Ancef 2 GM Premix Inj 2 gm In 50 / 50 50 ml @ 100 mls/hr IV.SIG DIRECTOR HR COMMUNICATIONS [facility] Rx#:[id number] Oral 360 / 360 Anesthesia Amount 700 / 700 Output: Estimated Blood Loss 450 / 450 Other: # Voids 4 Date of Last Bowel Movement 09/08/18 Weight On Admission 120.8 kg Narrative: Laying in bed NAD LLE Dressing c/d/i, no drainage, mild erythema lateral wear patient reacted to skin cleansing solution No erythema near incision itself +motor at distal, +sens, +nvi neg homans - Constitutional no acute distress Results - Labs CBC & Chem 7: 09/09/18 04:33 Laboratory Results - last 24 hr 09/08/18 09/09/18 10:00 04:33 Hgb 11.5 L Hct 33.9 L Blood Type O Positive Antibody Screen Negative MTS Gel Crossmatch See Detail - Imaging Impressions Hip X-Ray 09/08/18 00:00 CONCLUSION: Left total hip arthroplasty in good position. - Procedures Left total hip arthroplasty, anterior approach Assessment and Plan - Ortho Post Op Day # 1 - Assessment and Plan pod#1 s/p L JODEE, anterior Pain moderately controlled. D/C planning, HHC likely tomorrow. Requests ice machine for home use. PO pain meds as needed. PT - Encouraged ambulation w walker. TTWBing LLE. Ok for ROM from seated position. ASA 81mg bid. Hold dressing changes unless saturated. F/U in 2 weeks as scheduled.
--- NOTE | 2018-09-09 07:48 | P.DS ---
Date of admission: 09/08/18 09:15 Primary care physician: No Primary Care Physician Attending physician on discharge: Amandeep Jc Anticipated date of discharge: 09/10/18 DS: Diagnosis - Discharge Diagnosis (1) Osteoarthritis of left hip Status: Acute DS: Medications - Discharge Medications Prescriptions: aspirin 81 mg PO BID #60 tab hydrocodone-acetaminophen 1 tab PO Q4H PRN #42 tab PRN Reason: Acute Pain DS: Summary - Time Spent with Patient Total time spent providing and/or coordinating discharge services: Greater than 30 minutes - Quality: VTE Deep Vein Thrombosis/Pulmonary Embolism Present on Admission: No Exam Vital signs: Vital Signs 09/08/18 10:00 09/08/18 16:36 09/08/18 16:45 Temperature 98.8 F 97.8 F Pulse Rate 70 80 76 Respiratory Rate 20 15 17 Blood Pressure 144/85 H 138/95 H 162/79 H Pulse Oximetry 95 95 95 09/08/18 17:00 09/08/18 17:15 09/08/18 17:45 Temperature 97.7 F Pulse Rate 76 80 78 Respiratory Rate 15 17 18 Blood Pressure 164/77 H 157/75 H 164/84 H Pulse Oximetry 96 95 95 09/08/18 18:15 09/08/18 19:03 09/08/18 20:00 Temperature 97.4 F L 97.1 F L Pulse Rate 80 90 Respiratory Rate 12 18 18 Blood Pressure 162/88 H 152/74 H Pulse Oximetry 96 94 L 09/08/18 20:24 09/08/18 22:23 09/09/18 00:00 Temperature 98.3 F Pulse Rate 93 H Respiratory Rate 18 18 18 Blood Pressure 115/68 Pulse Oximetry 94 L 09/09/18 00:18 09/09/18 03:42 09/09/18 04:00 Temperature 98.2 F Pulse Rate 79 Respiratory Rate 18 18 18 Blood Pressure 131/73 Pulse Oximetry 95 Intake & Output 09/08/18 09/09/18 09/09/18 18:59 06:59 18:59 Intake Total 2112.08 / 2112.08 1310 / 1310 Output Total 450 / 450 Balance 1662.08 / 1662.08 1310 / 1310 Weight 120.8 kg 125.8 kg Intake: IV 1412.08 / 1412.08 950 / 950 LR 1000 mL Inj 1,000 ML @ 80 1000 / 1000 850 / 850 mls/hr IV.CONT .[id number] [facility] Rx# :[id number] Cyklokapron Inj 1,208 MG In NS 112.08 / 112.08 Inj 100 ML @ 200 mls/hr IV.SIG ONCE [facility] Rx#:[id number] Vancomycin Inj 1,000 MG In NS 250 / 250 Inj 250 ML @ 250 mls/hr IV.SIG CULTURIST [facility] Rx#:[id number] Ancef 1 GM Premix Inj 1 gm In 100 / 100 50 ml @ 100 mls/hr IV.SIG Q6H [facility] Rx#:[id number] Ancef 2 GM Premix Inj 2 gm In 50 / 50 50 ml @ 100 mls/hr IV.SIG CULTURIST [facility] Rx#:[id number] Oral 360 / 360 Anesthesia Amount 700 / 700 Output: Estimated Blood Loss 450 / 450 Other: # Voids 4 Date of Last Bowel Movement 09/08/18 Weight On Admission 120.8 kg Narrative: Laying in bed NAD LLE Dressing c/d/i, no drainage, mild erythema lateral wear patient reacted to skin cleansing solution No erythema near incision itself +motor at distal, +sens, +nvi neg homans - Constitutional no acute distress Results Procedures completed during hospitalization: Left total hip arthroplasty, anterior approach Labs on day of discharge: Labs from last 24 hours 09/09/18 09/08/18 04:33 10:00 Hgb 11.5 L Hct 33.9 L Blood Type O Positive Antibody Screen Negative MTS Gel Crossmatch See Detail - Impressions ITS Impressions Hip X-Ray 09/08/18 00:00 CONCLUSION: Left total hip arthroplasty in good position. Discharge Plan - Discharge Disposition Patient Disposition: W/Home Health Service - Discharge Condition Condition: Good - Discharge Order Discharge Orders: Discharge Order (Routine); Ordered 09/08/18 Ordered By: Amandeep Jc - Physicians Team Primary Care Provider: Primary Care Kailey Iqbal Attending Provider: Amandeep Jc - Rxs /Orders / Referrals /Forms Prescriptions: New aspirin 81 mg Tablet,Chewable 81 mg PO BID Qty: 60 RF: 0 hydrocodone-acetaminophen 7.5-325 mg Tablet 1 tab PO Q4H PRN (Reason: Acute Pain) Qty: 42 RF: 0 Continue biotin 10,000 mcg Capsule 1 cap PO DAILY hydrochlorothiazide 12.5 mg Capsule 12.5 mg PO DAILY loratadine [Claritin] 10 mg Tablet 10 mg PO DAILY lubiprostone [Amitiza] 8 mcg Capsule 16 mcg PO DAILY pregabalin [Lyrica] 75 mg Capsule 75 mg PO BID Ambulatory Orders / Order Sets / DME: Adjustable Commode 3-in-1 (1 each) (Routine) Location: Determined by Patient Ordered By: Amandeep Jc Walker With Front Wheels (1 each) (Routine) Location: Determined by Patient Ordered By: Amandeep Jc Referrals: Primary Care Kailey Iqbal [Primary Care Provider] - See Instructions - Discharge Instructions Patient Printed Instructions: Hydrocodone/Acetaminophen (By mouth), Aspirin ( By mouth), How to Use an Incentive Spirometer (DC), How to Choose and Use a Walker (GEN), UVALDO Hose (DC), Total Hip Replacement (DC) Additional Instructions: Full weight bearing Follow up appt with Mikayla PARSONS on 09/22 at 11:00 am [place] [facility] Additional instruction sheet for Total Hip patients from Surgeons office provided at discharge
[2018-09-09] MEDS: Multivitamin/Minerals Therapeutic Tablet PO SCH ×2 (08:08→21:25)
[2018-09-09] MEDS: Loratadine 10 MG Tablet PO SCH (08:09)
[2018-09-09] MEDS: Senna/Docusate Sodium 8.6/50 MG Tablet PO SCH ×2 (08:09→21:25)
[2018-09-09] MEDS: Pregabalin 75 MG Capsule PO SCH ×2 (08:09→21:25)
[2018-09-10 07:37] LABS: Hemoglobin 9.9 gm/dL (11.6-15.3)
[2018-09-10] MEDS: Loratadine 10 MG Tablet PO SCH (08:24)
[2018-09-10] MEDS: Senna/Docusate Sodium 8.6/50 MG Tablet PO SCH (08:24)
[2018-09-10] MEDS: Pregabalin 75 MG Capsule PO SCH (08:25)
[2018-09-10] MEDS: Multivitamin/Minerals Therapeutic Tablet PO SCH (08:26)
--- NOTE | 2018-09-10 08:34 | P.PNOP ---
Subjective Interval history: Patient states her pain is well controlled. All questions were answered and reassurance was given. Patient feels ready for discharge home today Physical Exam Vital signs: Vital Signs 09/09/18 16:00 09/09/18 20:00 09/10/18 00:00 Temperature 97.4 F L 98.9 F 98.3 F Pulse Rate 76 76 70 Respiratory Rate 16 18 18 Blood Pressure 124/66 116/62 111/73 Pulse Oximetry 96 99 97 09/10/18 04:00 Temperature 98.2 F Pulse Rate 100 H Respiratory Rate 18 Blood Pressure 125/56 L Pulse Oximetry 97 Intake & Output 09/09/18 09/10/18 09/10/18 18:59 06:59 18:59 Intake Total 2450 / 2450 Balance 2450 / 2450 Intake: IV 50 / 50 Ancef 1 GM Premix Inj 1 gm In 50 / 50 50 ml @ 100 mls/hr IV.SIG Q6H [facility] Rx#:[id number] Oral 2400 / 2400 Other: # Voids 6 Date of Last Bowel Movement 09/08/18 Narrative: Laying in bed NAD LLE Dressing c/d/i, no drainage, mild erythema lateral wear patient reacted to skin cleansing solution No erythema near incision itself, mild ecchymosis present +motor at distal, +sens, +nvi neg homans Results - Labs CBC & Chem 7: 09/10/18 05:49 Laboratory Results - last 24 hr 09/10/18 05:49 Hgb 9.9 L Hct 29.0 L - Procedures Left total hip arthroplasty, anterior approach Assessment and Plan - Problem List (1) Osteoarthritis of left hip Code(s): M16.12 - Unilateral primary osteoarthritis, left hip Status: Acute - Assessment and Plan pod#2 s/p L JODEE, anterior PO pain meds as needed. PT - Encouraged ambulation w walker. TTWBing LLE. Ok for ROM from seated position. ASA 81mg bid. Hold dressing changes unless saturated. F/U in 2 weeks as scheduled. Clear for discharge from orthopedic standpoint to home with home health care
== END 2018-09-10 10:07 | disposition home health service (06) ==
LOC: HSDI 09:15 → N06 17:57
PROVIDERS: ADMIT Orthopaedic Surgery Orthopaedic Surgery of the Spine; ATTEND Orthopaedic Surgery Orthopaedic Surgery of the Spine